=== PATIENT | female | born 1995 | race Two or more races ===

== ENCOUNTER 2019-05-26 01:32 | Outpatient (CLI) | payer OTHER ==
[2019-05-26] MEDS ORDERED: PRENATAL TABLE1 EAC1 PO (01:54)
== END 2019-05-26 10:33 | disposition home or self-care (01) ==
LOC: OBS/DEL 01:32
DX: O23.43 Unspecified infection of urinary tract in pregnancy, third trimester (principal); O35.8XX0 Maternal care for other (suspected) fetal abnormality and damage, not applicable or unspecified; O98.813 Other maternal infectious and parasitic diseases complicating pregnancy, third trimester; B37.89 Other sites of candidiasis

== ENCOUNTER 2019-06-04 21:00 | Outpatient (CLI) | payer OTHER ==
[~2019-06-04 21:00] MED LIST: PRENATAL TABLE1 EAC1 PO
== END 2019-06-05 09:45 | disposition home or self-care (01) ==
LOC: OBS/DEL 21:00 → NST 21:00 → OBS/DEL 21:37
DX: O47.1 False labor at or after 37 completed weeks of gestation (principal); O35.8XX0 Maternal care for other (suspected) fetal abnormality and damage, not applicable or unspecified

== ENCOUNTER 2019-06-07 14:38 | Inpatient (IN) | payer OTHER ==
[~2019-06-07] VITALS: Ht 160 cm; Wt 69.4 kg
== END 2019-06-09 14:32 | disposition home or self-care (01) | DRG 807 ==
LOC: OB/GYN 14:38 → LDR 14:38 → OB/GYN 22:26
PROVIDERS: ADMIT Obstetrics & Gynecology
PROC: 10E0XZZ Delivery of Products of Conception, External Approach (ICD-10-PCS; principal; 2019-06-07)
PROC: 3E033VJ Introduction of Other Hormone into Peripheral Vein, Percutaneous Approach (ICD-10-PCS; 2019-06-07)
PROC: 10907ZC Drainage of Amniotic Fluid, Therapeutic from Products of Conception, Via Natural or Artificial Opening (ICD-10-PCS; 2019-06-07)
PROC: 4A1HXCZ Monitoring of Products of Conception, Cardiac Rate, External Approach (ICD-10-PCS; 2019-06-07)
PROC: 0UQMXZZ Repair Vulva, External Approach (ICD-10-PCS; 2019-06-07)
DX: O71.82 Other specified trauma to perineum and vulva (principal); Z37.0 Single live birth; Z3A.39 39 weeks gestation of pregnancy

== ENCOUNTER 2021-08-01 18:39 | Inpatient (IN) | payer OTHER ==
[~2021-08-01] VITALS: Ht 160 cm; Wt 54.0 kg
[2021-08-04] MEDS ORDERED: METRONIDAZOLE500 MG PO (12:32)
[2021-08-04] MEDS ORDERED: CIPRO500 MG PO (12:32)
== END 2021-08-04 13:44 | disposition home or self-care (01) | DRG 392 ==
LOC: ER 18:39 → MEDJ 08-02 14:01 → MEDI 08-02 14:01 → SEC-K 08-02 17:21 → MEDI 08-02 17:24 → SEC-K 08-02 18:34 → MEDI 08-03 02:10
PROVIDERS: ADMIT Internal Medicine; ATTEND Internal Medicine
PROC: BW21ZZZ Computerized Tomography (CT Scan) of Abdomen and Pelvis (ICD-10-PCS; principal; 2021-08-04)
DX: A09 Infectious gastroenteritis and colitis, unspecified (principal); B34.9 Viral infection, unspecified; Z20.822 Contact with and (suspected) exposure to COVID-19

== ENCOUNTER 2023-12-05 20:11 | Emergency (ER) | payer OTHER ==
[~2023-12-05] VITALS: Ht 161.3 cm; Wt 58.1 kg
[~2023-12-05 20:11] MED LIST changes: +CIPRO500 MG PO; +METRONIDAZOLE500 MG PO
== END 2023-12-06 01:32 | disposition home or self-care (01) ==
LOC: ER 20:12
DX: S00.33XA Contusion of nose, initial encounter (principal); W22.8XXA Striking against or struck by other objects, initial encounter; Y93.89 Activity, other specified; Y92.018 Other place in single-family (private) house as the place of occurrence of the external cause; Z91.040 Latex allergy status; Z91.018 Allergy to other foods